=== PATIENT | female | born 1980 | race American Indian/Alaskan Native ===

== ENCOUNTER 2021-06-30 08:00 | Outpatient (CLI) | payer OTHER | END 2021-06-30 08:30 | disposition home or self-care (01) | LOC: PPH VACUNA 08:00 | PROVIDERS: ATTEND Emergency Medicine Pediatric Emergency Medicine | DX: Z23 Encounter for immunization (principal) ==

== ENCOUNTER 2021-11-12 08:00 | Outpatient (CLI) | payer OTHER | END 2021-11-12 08:30 | disposition home or self-care (01) | LOC: PPH VACUNA 08:00 | PROVIDERS: ATTEND Emergency Medicine Pediatric Emergency Medicine | DX: Z23 Encounter for immunization (principal) | CPT/HCPCS: 90686; G0008 ==

== ENCOUNTER 2022-01-02 14:17 | Outpatient (CLI) | payer OTHER | END 2022-01-02 14:27 | disposition home or self-care (01) | LOC: MAMO-SONO 14:17 | PROVIDERS: ATTEND Surgery | DX: N60.11 Diffuse cystic mastopathy of right breast (principal); N60.12 Diffuse cystic mastopathy of left breast ==

== ENCOUNTER 2022-01-21 07:18 | Outpatient (CLI) | payer OTHER | END 2022-01-21 07:27 | disposition home or self-care (01) | LOC: LAB 07:18 | DX: D64.9 Anemia, unspecified (principal); E03.9 Hypothyroidism, unspecified; E16.2 Hypoglycemia, unspecified; N39.0 Urinary tract infection, site not specified; E78.2 Mixed hyperlipidemia; N91.1 Secondary amenorrhea; E55.9 Vitamin D deficiency, unspecified ==

== ENCOUNTER 2022-01-27 14:04 | Outpatient (CLI) | payer OTHER | END 2022-01-27 14:16 | disposition home or self-care (01) | LOC: LAB 14:04 | DX: U07.1 COVID-19 (principal); B34.1 Enterovirus infection, unspecified ==

== ENCOUNTER 2022-03-12 07:19 | Outpatient (CLI) | payer OTHER | END 2022-03-12 07:25 | disposition home or self-care (01) | LOC: LAB 07:19 | PROVIDERS: ATTEND Anesthesiology Pain Medicine | DX: M13.80 Other specified arthritis, unspecified site (principal); M26.629 Arthralgia of temporomandibular joint, unspecified side; Z83.3 Family history of diabetes mellitus; D51.0 Vitamin B12 deficiency anemia due to intrinsic factor deficiency ==

== ENCOUNTER 2022-06-17 15:40 | Outpatient (CLI) | payer OTHER | END 2022-06-17 15:45 | disposition home or self-care (01) | LOC: PPH VACUNA 15:40 | PROVIDERS: ATTEND Emergency Medicine Pediatric Emergency Medicine | DX: Z23 Encounter for immunization (principal) ==

== ENCOUNTER 2022-11-02 11:51 | Outpatient (CLI) | payer OTHER | END 2022-11-02 11:59 | disposition home or self-care (01) | LOC: RAD 11:51 | PROVIDERS: ATTEND General Practice | DX: J10.00 Influenza due to other identified influenza virus with unspecified type of pneumonia (principal) ==

== ENCOUNTER 2022-12-22 12:28 | Emergency (ER) | payer OTHER ==
[~2022-12-22] VITALS: Ht 162.6 cm; Wt 81.6 kg
== END 2022-12-22 13:34 | disposition home or self-care (01) ==
LOC: ER 12:28
DX: M54.59 Other low back pain (principal); M62.830 Muscle spasm of back; Z88.0 Allergy status to penicillin

== ENCOUNTER 2023-02-11 07:27 | Outpatient (CLI) | payer OTHER ==
[~2023-02-11 07:27] MED LIST: NABUMETONE750 MG PO
== END 2023-02-11 07:31 | disposition home or self-care (01) ==
LOC: LAB 07:27
PROVIDERS: ATTEND Obstetrics & Gynecology
DX: E16.2 Hypoglycemia, unspecified (principal); E78.2 Mixed hyperlipidemia; E56.9 Vitamin deficiency, unspecified; E55.9 Vitamin D deficiency, unspecified; E03.9 Hypothyroidism, unspecified; R97.1 Elevated cancer antigen 125 [CA 125]; R53.1 Weakness; E66.01 Morbid (severe) obesity due to excess calories; Z11.3 Encounter for screening for infections with a predominantly sexual mode of transmission

== ENCOUNTER 2023-03-29 09:12 | Outpatient (CLI) | payer OTHER | END 2023-03-29 09:24 | disposition home or self-care (01) | LOC: SONOGRAMA 09:12 | PROVIDERS: ATTEND Obstetrics & Gynecology | DX: E04.8 Other specified nontoxic goiter (principal) ==

== ENCOUNTER 2023-04-01 08:14 | Outpatient (CLI) | payer OTHER | END 2023-04-01 08:16 | disposition home or self-care (01) | LOC: SONOGRAMA 08:14 | PROVIDERS: ATTEND Pathology Anatomic Pathology | DX: D34 Benign neoplasm of thyroid gland (principal); E04.9 Nontoxic goiter, unspecified ==

== ENCOUNTER 2023-09-16 15:24 | Outpatient (CLI) | payer OTHER ==
[~2023-09-16 15:24] MED LIST changes: +DICLOFENAC POTA50 MG PO
== END 2023-09-16 15:32 | disposition home or self-care (01) ==
LOC: RAD 15:24
DX: M25.552 Pain in left hip (principal)

== ENCOUNTER 2023-09-23 12:02 | Outpatient (CLI) | payer OTHER | END 2023-09-23 14:43 | disposition home or self-care (01) | LOC: LAB 12:02 | DX: U07.1 COVID-19 (principal) ==

== ENCOUNTER 2023-09-24 07:44 | Emergency (ER) | payer OTHER ==
[~2023-09-24] VITALS: Ht 162.6 cm; Wt 82.1 kg
== END 2023-09-24 10:25 | disposition home or self-care (01) ==
LOC: ER 07:44
DX: M79.645 Pain in left finger(s) (principal); W46.0XXA Contact with hypodermic needle, initial encounter; Y93.89 Activity, other specified; Y92.238 Other place in hospital as the place of occurrence of the external cause; Y99.8 Other external cause status; Z88.0 Allergy status to penicillin

== ENCOUNTER 2023-10-18 13:51 | Outpatient (CLI) | payer OTHER | END 2023-10-18 13:59 | disposition home or self-care (01) | LOC: RAD 13:51 | DX: J10.00 Influenza due to other identified influenza virus with unspecified type of pneumonia (principal) ==

== ENCOUNTER 2023-12-16 07:29 | Outpatient (CLI) | payer OTHER ==
[2023-12-16 08:18] LABS: HEMATOCRIT 34.4 % (36.0-45.00); HEMOGLOBIN 11.5 g/dL (12.0-15.00); MEAN CELL VOLUME 86.9 fL (80.00-100.00); MEAN CORPUSCULAR HEMOGLOBIN 29.1 pg (27.00-32.0); MEAN CORPUSCULAR HGB CONC 33.5 g/dl (32.0-36.0); PLATELET COUNT 282 K/uL (150-450); RED BLOOD COUNT 3.96 M/uL (4.00-6.00); RED CELL DISTRIBUTION WIDTH 15.4 % (11.5-14.5)
[2023-12-16 08:32] LABS: INR 0.98; PARTIAL THROMBOPLASTIN TIME 28.1 SECONDS (22.0-34.0); PROTHROMBIN TIME 10.3 SECONDS (9.0-11.5)
[2023-12-16 08:44] LABS: ALBUMIN 3.7 gm/dL (3.4-5.0); BILIRUBIN TOTAL 0.44 mg/dL (0.3-1.2); CALCIUM 8.7 mg/dL (8.5-10.1); CHOL HDL RATIO 2.9 (0-5.0); CREATININE SERUM 0.53 mg/dL (0.55-1.02); FREE TRIODOTIRONINE 2.6 pg/ml (2.18-3.98); GFR 124.75; GLOBULINA 3.2 G/DL (2.4-3.5); POTASSIUM 3.79 mEq/L (3.5-5.1); T4 FREE 0.79 NG/ML (0.76-1.46); TOTAL PROTEIN 6.9 gm/dL (6.4-8.2); TSH 0.947 uIU/mL (0.358-3.74)
[2023-12-16 08:53] LABS: PH,URINE 5.5 (5.0-8.0); URINE APPEARANCE Clear; URINE BILIRRUBIN Negative (NEGATIVE); URINE BLOOD Small; URINE COLOR Yellow; URINE GLUCOSE Negative (NEGATIVE); URINE LEUKOCYTE Negative; URINE NITRATE Negative; URINE PROTEIN Negative (NEGATIVE); URINE UROBILINOGEN 0.2 E.U./dl
[2023-12-16 08:56] LABS: URINE EPITHELIAL CELLS 12.8 uL (0.0-38.8); URINE RBC 14.8 uL (0.0-20.8); URINE WBC 4.9 uL (0.0-23.2)
== END 2023-12-16 07:33 | disposition home or self-care (01) ==
LOC: LAB 07:29
DX: D68.9 Coagulation defect, unspecified (principal); E16.2 Hypoglycemia, unspecified; N39.0 Urinary tract infection, site not specified; E78.2 Mixed hyperlipidemia; E56.9 Vitamin deficiency, unspecified; E55.9 Vitamin D deficiency, unspecified; E03.9 Hypothyroidism, unspecified; R97.1 Elevated cancer antigen 125 [CA 125]; R53.1 Weakness; E66.01 Morbid (severe) obesity due to excess calories; Z11.3 Encounter for screening for infections with a predominantly sexual mode of transmission

== ENCOUNTER 2024-08-04 03:30 | Outpatient (CLI) | payer OTHER | END 2024-08-04 04:00 | disposition home or self-care (01) | LOC: PPH VACUNA 03:30 | PROVIDERS: ATTEND Emergency Medicine Pediatric Emergency Medicine | DX: Z23 Encounter for immunization (principal) ==

== ENCOUNTER 2024-11-07 07:46 | Outpatient (CLI) | payer OTHER ==
[2024-11-08 08:04] LABS: HEPATITIS A ANTIBODY IGG Positive (Negative); HEPATITIS B SURFACE ANTIBODY Reactive (.); HEPATITIS C VIRUS ANTIBODY Non Reactive (Non Reactive)
== END 2024-11-07 07:47 | disposition home or self-care (01) ==
LOC: LAB 07:46
DX: A64 Unspecified sexually transmitted disease (principal); B19.10 Unspecified viral hepatitis B without hepatic coma

== ENCOUNTER 2024-11-07 08:20 | Outpatient (CLI) | payer OTHER | END 2024-11-07 08:27 | disposition home or self-care (01) | LOC: RAD 08:20 | DX: R76.11 Nonspecific reaction to tuberculin skin test without active tuberculosis (principal) ==

== ENCOUNTER 2025-01-10 13:36 | Outpatient (CLI) | payer OTHER | END 2025-01-10 13:50 | disposition home or self-care (01) | LOC: SONOGRAMA 13:36 | PROVIDERS: ATTEND Obstetrics & Gynecology | DX: R10.2 Pelvic and perineal pain (principal); N93.9 Abnormal uterine and vaginal bleeding, unspecified ==

== ENCOUNTER 2025-01-17 06:50 | Outpatient (CLI) | payer OTHER ==
[2025-01-17 07:43] LABS: HEMATOCRIT 34.5 % (36.0-45.00); HEMOGLOBIN 11.4 g/dL (12.0-15.00); MEAN CORPUSCULAR HEMOGLOBIN 28.2 pg (27.00-32.0); MEAN CORPUSCULAR HGB CONC 33.1 g/dl (32.0-36.0); PLATELET COUNT 328 K/uL (150-450); RED BLOOD COUNT 4.06 M/uL (4.00-6.00)
[2025-01-17 07:48] LABS: URINE APPEARANCE Clear; URINE BILIRRUBIN Negative (NEGATIVE); URINE BLOOD Large; URINE COLOR Yellow; URINE GLUCOSE Negative (NEGATIVE); URINE KETONE Negative (NEGATIVE); URINE LEUKOCYTE Negative; URINE NITRATE Negative; URINE PROTEIN Negative (NEGATIVE); URINE UROBILINOGEN 0.2 E.U./dl
[2025-01-17 07:52] LABS: URINE BACTERIA 75.8 uL (0.0-1933); URINE EPITHELIAL CELLS 9.3 uL (0.0-38.8); URINE RBC 251.5 uL (0.0-20.8); URINE WBC 4.2 uL (0.0-23.2)
[2025-01-17 07:56] LABS: URINE CAST 0.14 uL (0.0-1.40)
[2025-01-17 08:34] LABS: INR 0.99; PARTIAL THROMBOPLASTIN TIME 27.7 SECONDS (22.0-34.0)
[2025-01-17 08:58] LABS: ALBUMIN 3.8 gm/dL (3.4-5.0); BILIRUBIN TOTAL 0.23 mg/dL (0.3-1.2); CALCIUM 8.9 mg/dL (8.5-10.1); CHOL HDL RATIO 3.4 (0-5.0); CREATININE SERUM 0.52 mg/dL (0.55-1.02); FREE TRIODOTIRONINE 2.5 pg/ml (2.18-3.98); GFR 126.95; GLOBULINA 3.2 G/DL (2.4-3.5); POTASSIUM 4.49 mEq/L (3.5-5.1); T4 FREE 0.85 NG/ML (0.76-1.46); T4 TOTAL 6.59 UG/DL (4.8-13.9); TSH 1.25 uIU/mL (0.358-3.74)
[2025-01-17 09:02] LABS: PROTHROMBIN TIME 10.8 SECONDS (9.0-11.5)
[2025-01-19 05:05] LABS: CA 125 48.9 U/mL (0.0-38.1); FOLLICLE STIMULATING HORMONE 15.6 mIU/mL (.)
== END 2025-01-17 06:55 | disposition home or self-care (01) ==
LOC: LAB 06:50
PROVIDERS: ATTEND Obstetrics & Gynecology
DX: E16.2 Hypoglycemia, unspecified (principal); N39.0 Urinary tract infection, site not specified; E78.2 Mixed hyperlipidemia; E56.9 Vitamin deficiency, unspecified; E55.9 Vitamin D deficiency, unspecified; E03.9 Hypothyroidism, unspecified; R97.1 Elevated cancer antigen 125 [CA 125]; R53.1 Weakness; E66.01 Morbid (severe) obesity due to excess calories; Z11.3 Encounter for screening for infections with a predominantly sexual mode of transmission; D68.9 Coagulation defect, unspecified

== ENCOUNTER 2025-03-29 13:16 | Outpatient (CLI) | payer OTHER | END 2025-03-29 13:33 | disposition home or self-care (01) | LOC: MAMO-SONO 13:16 | PROVIDERS: ATTEND Obstetrics & Gynecology | DX: N64.4 Mastodynia (principal); N63.0 Unspecified lump in unspecified breast; Z12.31 Encounter for screening mammogram for malignant neoplasm of breast ==

== ENCOUNTER 2025-04-05 08:39 | Outpatient (CLI) | payer OTHER ==
[~2025-04-05 08:39] MED LIST changes: +METAXALONE800 MG PO
== END 2025-04-05 08:42 | disposition home or self-care (01) ==
LOC: RAD 08:39
PROVIDERS: ATTEND Physical Medicine & Rehabilitation
DX: M54.2 Cervicalgia (principal)

== ENCOUNTER 2025-06-29 14:13 | Outpatient (CLI) | payer OTHER | END 2025-06-29 14:14 | disposition home or self-care (01) | LOC: RAD 14:13 | DX: Z01.811 Encounter for preprocedural respiratory examination (principal); Z01.812 Encounter for preprocedural laboratory examination ==

== ENCOUNTER 2025-07-02 07:07 | Outpatient (CLI) | payer OTHER ==
[2025-07-02 08:05] LABS: BASO % 0.3 % (0.1-1.2); EOS # 0.10 (0.04-0.54); EOS % 1.4 % (0.7-7.0); LYMPH # 2.69 (1.18-3.74); LYMPH % 37.4 % (19.3-53.1); MEAN PLATELET VOLUME 9.20 fl (9.4-12.4); MONO # 0.49 (0.24-0.82); MONO % 6.8 % (4.7-12.5); NEUT # 3.86 (1.56-6.13); NEUT % 53.7 % (34.0-71.1); RED CELL DISTRIBUTION WIDTH 14.6 % (11.6-14.4)
[2025-07-02 08:12] LABS: URINE APPEARANCE Clear; URINE BILIRRUBIN Negative (NEGATIVE); URINE BLOOD Small; URINE COLOR Yellow; URINE GLUCOSE Negative (NEGATIVE); URINE KETONE Negative (NEGATIVE); URINE LEUKOCYTE Negative; URINE NITRATE Negative; URINE PROTEIN Trace (NEGATIVE); URINE UROBILINOGEN 0.2 E.U./dl
[2025-07-02 08:15] LABS: URINE BACTERIA 355.1 uL (0.0-1933); URINE EPITHELIAL CELLS 24.9 uL (0.0-38.8); URINE RBC 28.3 uL (0.0-20.8); URINE WBC 2.4 uL (0.0-23.2)
[2025-07-02 08:46] LABS: INR 0.96
[2025-07-02 08:47] LABS: URINE CAST 0.29 uL (0.0-1.40)
[2025-07-02 09:25] LABS: ALT/SGPT 25.0 U/L (12-78); AST/SGOT 13.0 U/L (15-37); BILIRUBIN TOTAL 0.3 mg/dL (0.3-1.2); BUN CREA RATIO 11.0 (7.0-25.0); CREATININE SERUM 0.62 mg/dL (0.55-1.02); GFR 103.18; GLOBULINA 3.6 G/DL (2.4-3.5); GLUCOSE FASTING 94.0 mg/dL (65-100); OSMOLALITY SERUM 275.0 MOSM/KG (275-295); TSH 0.727 uIU/mL (0.358-3.74)
== END 2025-07-02 07:19 | disposition home or self-care (01) ==
LOC: LAB 07:07
PROVIDERS: ATTEND Obstetrics & Gynecology
DX: E16.2 Hypoglycemia, unspecified (principal); N39.0 Urinary tract infection, site not specified; E78.2 Mixed hyperlipidemia; E56.9 Vitamin deficiency, unspecified; E55.9 Vitamin D deficiency, unspecified; E03.9 Hypothyroidism, unspecified; R97.1 Elevated cancer antigen 125 [CA 125]; R53.1 Weakness; E66.01 Morbid (severe) obesity due to excess calories; Z11.3 Encounter for screening for infections with a predominantly sexual mode of transmission; D68.9 Coagulation defect, unspecified

== ENCOUNTER 2025-08-24 16:30 | Outpatient (CLI) | payer OTHER | END 2025-08-24 16:40 | disposition home or self-care (01) | LOC: PPH VACUNA 16:30 | PROVIDERS: ATTEND Emergency Medicine Pediatric Emergency Medicine | DX: Z23 Encounter for immunization (principal) ==